=== PATIENT | female | born 1995 | race Caucasian/White ===

== ENCOUNTER 2018-04-09 08:19 | Emergency (ER) | payer OTHER ==
[~2018-04-09] VITALS: Ht 185.4 cm; Wt 79.4 kg
[~2018-04-09 08:19] MED LIST: AMOX500 PO; CEPH500 PO; CODACE30 PO; IBUP600 PO; NAPR500 PO; ONDA4ODT MM; PHENA200 PO; PROM25 PO; RXCODACET PO; SULTRIDS PO
[2018-04-09] MEDS ORDERED: Prozac20 MG PO (09:23)
== END 2018-04-09 11:40 | disposition home or self-care (01) ==
LOC: ER 08:19
DX: M26.621 Arthralgia of right temporomandibular joint (principal); M62.838 Other muscle spasm; F17.210 Nicotine dependence, cigarettes, uncomplicated; Z79.899 Other long term (current) drug therapy
CPT/HCPCS: 70110; 70480; 96374; 96375; 99284-25; J1170; J2405

== ENCOUNTER → 2018-12-20 | Outpatient (CLI) | payer OTHER ==
[~2018-12-20] MED LIST changes: +Prozac20 MG PO
== END | disposition home or self-care (01) ==
LOC: LAB EV 14:07 → LAB SHORT 14:07
DX: N12 Tubulo-interstitial nephritis, not specified as acute or chronic (principal)
CPT/HCPCS: 87086

== ENCOUNTER 2020-09-10 22:16 | Emergency (ER) | payer OTHER ==
[~2020-09-10] VITALS: Ht 185.4 cm; Wt 68.0 kg
== END 2020-09-10 22:52 | disposition home or self-care (01) ==
LOC: ER 22:16
DX: Z00.00 Encounter for general adult medical examination without abnormal findings (principal); F17.210 Nicotine dependence, cigarettes, uncomplicated; Z59.0 Homelessness
CPT/HCPCS: 99282

== ENCOUNTER 2022-11-09 16:27 | Emergency (ER) | payer OTHER ==
[~2022-11-09] VITALS: Ht 185.4 cm; Wt 59.0 kg
[2022-11-09 16:35] VITALS: BP 141/99
[2022-11-09] MEDS ORDERED: CEPH500 PO (17:04)
== END 2022-11-09 17:08 ==
LOC: ER 16:27
DX: S91.332A Puncture wound without foreign body, left foot, initial encounter (principal); W22.8XXA Striking against or struck by other objects, initial encounter; Z23 Encounter for immunization; F17.210 Nicotine dependence, cigarettes, uncomplicated
CPT/HCPCS: 90471; 90714; 90715; 99283-25

== ENCOUNTER 2022-11-24 15:19 | Emergency (ER) | payer OTHER ==
[~2022-11-24] VITALS: Ht 185.4 cm; Wt 68.0 kg
[2022-11-24 15:33] VITALS: BP 127/90
[2022-11-24] MEDS ORDERED: Mupirocin22 GM TOP (15:37)
== END 2022-11-24 15:38 | disposition home or self-care (01) ==
LOC: ER 15:19
DX: B34.9 Viral infection, unspecified (principal); L01.00 Impetigo, unspecified; F17.210 Nicotine dependence, cigarettes, uncomplicated; Z86.73 Personal history of transient ischemic attack (TIA), and cerebral infarction without residual deficits; Z88.0 Allergy status to penicillin
CPT/HCPCS: 99282

== ENCOUNTER 2023-01-03 17:34 | Emergency (ER) | payer OTHER ==
[~2023-01-03] VITALS: Ht 188 cm; Wt 68.0 kg
[~2023-01-03 17:34] MED LIST changes: +Mupirocin22 GM TOP
[2023-01-03 17:41] VITALS: BP 148/98
[2023-01-03] MEDS ORDERED: Bactrim Ds Tab1 EACH PO (17:43)
[2023-01-03] MEDS ORDERED: CEPH500 PO (17:43)
== END 2023-01-03 17:40 | disposition home or self-care (01) ==
LOC: ER 17:34
DX: L02.412 Cutaneous abscess of left axilla (principal); Z88.0 Allergy status to penicillin; Z79.899 Other long term (current) drug therapy; F17.210 Nicotine dependence, cigarettes, uncomplicated
CPT/HCPCS: 99283

== ENCOUNTER 2023-02-15 10:36 | Emergency (ER) | payer OTHER ==
[~2023-02-15] VITALS: Ht 185.4 cm; Wt 65.8 kg
[~2023-02-15 10:36] MED LIST changes: +Bactrim Ds Tab1 EACH PO
[2023-02-15 11:13] VITALS: BP 111/82
[2023-02-15 12:01] LABS: BASOPHILS ABSOLUTE AUTO 0.01 K/mm3 (0.00-0.23); BASOPHILS PERCENT AUTO 0 % (0-2); EOSINOPHILS ABSOLUTE AUTO 0.16 K/mm3 (0.00-0.68); EOSINOPHILS PERCENT AUTO 3 % (0-6); Hematocrit 39.9 % (33.0-51.0); Hemoglobin 13.6 g/dL (11.5-16.0); IMMATURE GRAN ABSOLUTE AUTO 0.02 K/mm3 (0.00-0.10); IMMATURE GRAN PERCENT AUTO 0 % (0-1); LYMPHOCYTES ABSOLUTE AUTO 1.22 K/mm3 (0.84-5.20); LYMPHOCYTES PERCENT AUTO 19 % (21-46); MONOCYTES ABSOLUTE AUTO 0.43 K/mm3 (0.16-1.47); MONOCYTES PERCENT AUTO 7 % (4-13); Mean Corpuscular HGB 31.1 pg (26.0-34.0); Mean Corpuscular HGB Conc 34.1 g/dL (31.5-36.5); Mean Corpuscular Volume 91 fL (80-100); Mean Platelet Volume 9.8 fL (9.1-12.4); NEUTROPHILS ABSOLUTE AUTO 4.62 K/mm3 (1.96-9.15); NEUTROPHILS PERCENT AUTO 71 % (41-73); Platelet Count 264 K/mm3 (150-400); RDW Coefficient Variation 11.8 % (11.7-14.2); RDW Standard Deviation 39.8 fL (35.1-46.3); Red Blood Cell Count 4.38 M/mm3 (3.80-5.20); White Blood Cell Count 6.46 K/mm3 (4.00-11.30)
[2023-02-15 12:23] LABS: Albumin, Blood 3.6 g/dL (3.4-5.0); Bilirubin, Total 0.5 mg/dL (0.1-1.0); Bun/Creatinine Ratio 14.1 (12.0-20.0); Calcium, Blood 8.5 mg/dL (8.5-10.1); Creatinine, Blood 0.57 mg/dL (0.40-1.00); Globulin, Blood 3.5 g/dL (2.2-4.0); Magnesium, Blood 2.1 mg/dL (1.6-2.4); Potassium, Blood 4.1 mmol/L (3.5-5.5); Total Protein, Blood 7.1 g/dL (6.4-8.2)
== END 2023-02-15 15:13 | disposition left against medical advice (07) ==
LOC: ER 10:36
PROVIDERS: Physician Assistant
DX: R11.2 Nausea with vomiting, unspecified (principal); R19.7 Diarrhea, unspecified; R10.9 Unspecified abdominal pain; Z53.29 Procedure and treatment not carried out because of patient's decision for other reasons
CPT/HCPCS: 80053; 83690; 83735; 84703; 85025; 99281

== ENCOUNTER 2023-09-07 13:49 | Emergency (ER) | payer OTHER ==
[~2023-09-07] VITALS: Ht 185.4 cm; Wt 49.9 kg
[2023-09-07 13:54] VITALS: BP 111/75
[2023-09-07] MEDS ORDERED: NEOPOLHCSU LEFTEAR (13:58)
== END 2023-09-07 14:02 | disposition home or self-care (01) ==
LOC: ER 13:49
DX: H60.92 Unspecified otitis externa, left ear (principal); F17.210 Nicotine dependence, cigarettes, uncomplicated; Z88.0 Allergy status to penicillin; Z86.73 Personal history of transient ischemic attack (TIA), and cerebral infarction without residual deficits
CPT/HCPCS: 99282

== ENCOUNTER 2023-09-12 22:24 | Emergency (ER) | payer OTHER ==
[~2023-09-12] VITALS: Ht 185.4 cm; Wt 63.5 kg
[~2023-09-12 22:24] MED LIST changes: +NEOPOLHCSU LEFTEAR
[2023-09-13] MEDS ORDERED: CEFD300 PO (01:49)
[2023-09-13] MEDS ORDERED: Cefdinir 300 MG Cap PO ONE (01:50)
[2023-09-13 01:54] VITALS: BP 127/87
== END 2023-09-13 01:54 | disposition home or self-care (01) ==
LOC: ER 22:24
DX: H66.92 Otitis media, unspecified, left ear (principal); F17.210 Nicotine dependence, cigarettes, uncomplicated; Z86.73 Personal history of transient ischemic attack (TIA), and cerebral infarction without residual deficits; Z79.899 Other long term (current) drug therapy; Z88.0 Allergy status to penicillin
CPT/HCPCS: 99282; A9270

== ENCOUNTER 2024-04-02 21:48 | Emergency (ER) | payer OTHER ==
[~2024-04-02] VITALS: Ht 185.4 cm; Wt 56.7 kg
[~2024-04-02 21:48] MED LIST changes: +CEFD300 PO
[2024-04-02 21:56] VITALS: BP 106/83
[2024-04-02] MEDS ORDERED: Azithromycin 250 MG Tab PO ONE (22:20)
[2024-04-02] MEDS ORDERED: AZIT500 PO (22:20)
[2024-04-02] MEDS ORDERED: Ketorolac Tromethamine 10 MG Tab PO ONE (22:20)
== END 2024-04-02 22:30 | disposition home or self-care (01) ==
LOC: ER 21:48
DX: J02.0 Streptococcal pharyngitis (principal); Z88.0 Allergy status to penicillin
CPT/HCPCS: 87430; 99283; A9270

== ENCOUNTER 2024-08-02 17:10 | Emergency (ER) | payer OTHER ==
[~2024-08-02] VITALS: Ht 185.4 cm; Wt 54.4 kg
[~2024-08-02 17:10] MED LIST changes: +AZIT500 PO
[2024-08-02 17:47] VITALS: BP 122/86
== END 2024-08-02 19:00 | disposition left against medical advice (07) ==
LOC: ER 17:10
DX: K08.89 Other specified disorders of teeth and supporting structures (principal); K04.7 Periapical abscess without sinus; Z53.21 Procedure and treatment not carried out due to patient leaving prior to being seen by health care provider